=== PATIENT | female | born 1995 | race African-American/Black ===

== ENCOUNTER 2018-12-17 18:38 | Emergency (ER) | payer BC, MEDICAID, OTHER ==
[2018-12-17 19:43] LABS: Bilirubin Negative (Negative); Blood, Urine Large (Negative); Clarity CLEAR (Clear); Glucose, Urine (Dipstick) Negative (Negative); Leukocyte Negative (Negative); Nitrite Negative (Negative); Protein, Urine (Dipstick) Negative (Neg-Trace); Specific Gravity, Urine 1.021 (1.002-1.036)
[2018-12-17 19:44] LABS: Pregnancy Test - Urine (BHCG) Negative (Negative); Pregu Control Background? CLEAR/WHITE (CLR/WHITE); Pregu Control Bar Appear? YES (CONTROL BAR); Specific Gravity 1.021 (1.002-1.036)
[2018-12-17 19:45] LABS: Bacteria/HPF None Seen HPF (None Seen); Hyaline Casts/LPF 0-3 HYALINE CAST LPF (0-3 Hyaline); Pathc Cast-AUWi Flag 0.43 (0-2.49); RBC/HPF GREATER THAN 50-TNTC HPF (0-3); Squamous Epithelial 0-3 HPF (0-3); WBC/HPF 0-3 HPF (0-3)
--- NOTE | 2018-12-17 22:06 | ULT ---
PELVIC ULTRASOUND: 12/17/18 HISTORY: Pelvic pain. Urinary frequency. Real time imaging of the pelvis was performed both transabdominally as well as with an endovaginal pr obe. The uterus is retroflexed and therefore, difficult to visualize. It measures 3 x 4.4 x 8 cm. End ometrium is in the 4 mm range. There is also some minimal fluid within the endometrial canal. There i s a subtle area of altered echogenicity along the uterine wall near the body region of the uterus, po ssibly a small fibroid although it is fairly vague in appearance and is an equivocal finding. Measure s in the 1.6 cm range. There are follicles involving both adnexa. There is some minimal free fluid adjacent to the right ova ry. DOPPLER EVALUATION WITH SPECTRAL ANALYSIS: Normal flow is shown to both ovaries. IMPRESSION: 1. Questionable small uterine fibroid. 2. Bilateral ovarian follicle with some minimal free fluid adjacent to the right ovary. POS: [facility]
[2018-12-17] MEDS ORDERED: HYDROcodone/Acetaminophen 10/325 mg Tablet ONE (22:09)
[2018-12-20 23:57] LABS: Chlamydia by PCR Not Detected (NotDetected); GC by PCR Not Detected (NotDetected)
== END 2018-12-17 22:20 | disposition home or self-care (01) ==
LOC: ERS 18:38
DX: N76.0 Acute vaginitis (principal); N93.9 Abnormal uterine and vaginal bleeding, unspecified
CPT/HCPCS: 76856; 81003; 81015; 81025; 87086; 87480; 87491; 87510; 87591; 87660

== ENCOUNTER 2020-09-19 13:00 | Emergency (ER) | payer BC ==
[2020-09-19 23:19] LABS: SARS-CoV-2 MS2 Positive; SARS-CoV-2 N Gene Negative; SARS-CoV-2 S Gene Negative; SARS-CoV-2 by NAA Not Detected (NotDetected); SARS-CoV-2 orf1ab Negative
== END 2020-09-19 13:51 | disposition home or self-care (01) ==
LOC: ERS 13:00
DX: R43.9 Unspecified disturbances of smell and taste (principal); Z20.828 Contact with and (suspected) exposure to other viral communicable diseases
CPT/HCPCS: 87635; 99283; U0003